=== PATIENT | female | born 1960 | race Caucasian/White ===

== ENCOUNTER 2022-12-08 07:16 | Inpatient (IN) | payer OTHER ==
[2022-12-08] MEDS ORDERED: Lidocaine 1% MPF 2 ML VIAL ONE (10:11)
[2022-12-08 10:39] LABS: SARS-CoV-2 NAA Rapid Test Not Detected (NotDetected)
[2022-12-08 10:58] LABS: #Eosinphils 0.1 thou/uL (0.0-0.7); #Lymphocytes 2.4 thou/uL (1.20-3.40); #Monocytes 0.5 thou/uL (0.11-0.59); #Neutrophils 5.7 thou/uL (1.40-6.50); %Basophils 0.2 % (0.0-1.0); %Lymphocytes 27.1 % (21.0-51.0); %Neutrophils 65.7 % (42.0-75.0); Hemoglobin 13.2 g/dL (12.0-16.0); Mean Corpuscular HGB CONC 32.8 g/dL (32.0-36.0); Mean Corpuscular Volume 85.3 fl (78.0-98.0); Mean Platelet Volume 8.9 fL (7.4-10.4); Platelet Count 277 10x3/uL (130-400); RBC Distribution Width 12.7 % (11.5-14.5); Red Blood Cell (RBC) Count 4.72 mill/uL (4.20-5.40); White Blood Cell (WBC) Count 8.7 10x3/uL (4.8-10.8)
[2022-12-08 11:02] LABS: Anion Gap 15 mmol/L (10-20); BUN (Urea Nitrogen) 19 mg/dL (9.8-20.1); Calc. Creatinine Clearance 133 mL/min (70-130); Calcium 8.8 mg/dL (7.8-10.44); Carbon Dioxide 23 mmol/L (23-31); Chloride 105 mmol/L (98-107); Estimated GFR 85; Glucose 114 mg/dL (80-115); Potassium 5.2 mmol/L (3.5-5.1); Sodium 138 mmol/L (136-145)
[2022-12-08] MEDS ORDERED: HYDROmorphone 0.5 MG/0.5 ML SYRINGE ONE ×5 (11:58→14:14)
[2022-12-08] MEDS ORDERED: fentaNYL PF 100 MCG/2 ML SYRINGE ONE ×3 (11:58→12:00)
[2022-12-08] MEDS ORDERED: Lidocaine 1% PF 5 ML VIAL ONE (12:13)
[2022-12-08] MEDS ORDERED: Ondansetron PF 4 MG/2 ML Vial ONE ×2 (12:13→18:17)
[2022-12-08] MEDS ORDERED: PROPOFOL 200 MG/20 ML VIAL ONE (12:13)
[2022-12-08] MEDS ORDERED: Rocuronium Bromide 10 MG/ML (10ML VIAL) ONE (12:13)
[2022-12-08] MEDS ORDERED: Dexamethasone 20 MG/5 ML VIAL ONE (12:13)
[2022-12-08] MEDS ORDERED: Glycopyrrolate 0.2 MG/ML 5 ML SYRINGE ONE (12:13)
[2022-12-08] MEDS ORDERED: NEOSTIGMINE 3 MG/3 ML SYR 3 MG/3 ML SYRINGE ONE (12:13)
[2022-12-08] MEDS ORDERED: Sodium Chloride 0.9% 100 ML ONE (12:16)
[2022-12-08] MEDS ORDERED: CEFAZOLIN 2 GM VIAL ONE (12:16)
[2022-12-08] MEDS ORDERED: Mag-Al 1200 mg/1200 mg/30 ML UDCUP PO PRN (13:15)
[2022-12-08] MEDS ORDERED: Acetaminophen 325 MG TAB PO PRN (13:15)
[2022-12-08] MEDS ORDERED: Acetaminophen/Codeine 30-300mg Tablet PO PRN ×2 (13:15)
[2022-12-08] MEDS ORDERED: Milk Of Magnesia 30 ML UDCUP PO PRN (13:15)
[2022-12-08] MEDS ORDERED: Dextrose 5% in Water 1,000 ML IV PRN (13:17)
[2022-12-08] MEDS ORDERED: HumaLOG 300 UNITS/3 ML VIAL SC PRN (13:17)
[2022-12-08] MEDS ORDERED: Dextrose 50% Abboject 50 ML SYRINGE SLOW IVP PRN (13:17)
[2022-12-08] MEDS ORDERED: Promethazine HCl 25 MG/ML VIAL IM PRN (13:32)
[2022-12-08] MEDS ORDERED: HYDROmorphone 2 MG/ML VIAL SLOW IVP PRN (13:32)
[2022-12-08] MEDS ORDERED: Ondansetron HCl/PF 4 MG/2 ML Vial IVP PRN (13:32)
[2022-12-08] MEDS ORDERED: Fentanyl 250 MCG/5 ML VIAL ONE (14:32)
[2022-12-08] MEDS ORDERED: Morphine 2 MG/ML VIAL ONE (18:14)
[2022-12-08] MEDS: Morphine 2 MG/ML VIAL SLOW IVP PRN ×2 (18:15→22:51)
[2022-12-08] MEDS: Sodium Chloride 0.9% 1,000 ML IV SCH (18:19)
[2022-12-08] MEDS: Ondansetron PF 4 MG/2 ML Vial IVP PRN (18:19)
[2022-12-08] MEDS: CEFAZOLIN 2 GM in Sodium Chloride 0.9% 100 ML IVPB SCH (19:59)
[2022-12-08 21:37] VITALS: BMI 44.2
[2022-12-08] MEDS: Promethazine 25 MG TAB PO PRN (21:51)
[2022-12-08] MEDS: diphenhydrAMINE 25 MG CAP PO PRN (22:51)
[2022-12-09] MEDS: Morphine 2 MG/ML VIAL SLOW IVP PRN ×3 (03:57→21:44)
[2022-12-09] MEDS: Sodium Chloride 0.9% 1,000 ML IV SCH ×2 (03:57→12:33)
[2022-12-09] MEDS: Ondansetron PF 4 MG/2 ML Vial IVP PRN (03:57)
[2022-12-09] MEDS: CEFAZOLIN 2 GM in Sodium Chloride 0.9% 100 ML IVPB SCH ×3 (03:58→21:40)
[2022-12-09] MEDS ORDERED: Dexamethasone 3 MG in Sodium Chloride 0.9% 50 ML IVPB SCH (05:45)
[2022-12-09] MEDS ORDERED: Dexamethasone 10 MG/ML VIAL SLOW IVP SCH (05:45)
[2022-12-09] MEDS ORDERED: oxyCODONE/Acetaminophen 5 mg/325 mg Tablet PO PRN (06:40)
[2022-12-09] MEDS: Cyclobenzaprine 10 MG TAB PO PRN ×2 (08:03→21:43)
[2022-12-09] MEDS: Promethazine 25 MG TAB PO PRN (08:03)
[2022-12-09 08:51] LABS: #Lymphocytes 1.2 thou/uL (1.20-3.40); #Monocytes 0.3 thou/uL (0.11-0.59); #Neutrophils 10.6 thou/uL (1.40-6.50); %Basophils 0.1 % (0.0-1.0); %Lymphocytes 9.6 % (21.0-51.0); %Monocytes 2.6 % (0.0-10.0); %Neutrophils 87.7 % (42.0-75.0); Hemoglobin 12.8 g/dL (12.0-16.0); Mean Corpuscular Hemoglobin 27.8 pg (27.0-31.0); Mean Corpuscular Volume 86.9 fl (78.0-98.0); Mean Platelet Volume 8.8 fL (7.4-10.4); Platelet Count 286 10x3/uL (130-400); RBC Distribution Width 12.6 % (11.5-14.5); Red Blood Cell (RBC) Count 4.62 mill/uL (4.20-5.40); White Blood Cell (WBC) Count 12.1 10x3/uL (4.8-10.8)
[2022-12-09] MEDS ORDERED: FLU VACC QS2022-23(6MOS UP)/PF 60 MCG/0.5 ML SYRINGE IM ONE (09:00)
[2022-12-09 09:33] LABS: Anion Gap 12 mmol/L (10-20); BUN (Urea Nitrogen) 14 mg/dL (9.8-20.1); Calc. Creatinine Clearance 133 mL/min (70-130); Calcium 8.7 mg/dL (7.8-10.44); Carbon Dioxide 26 mmol/L (23-31); Chloride 102 mmol/L (98-107); Estimated GFR 83; Glucose 169 mg/dL (80-115); Potassium 4.3 mmol/L (3.5-5.1); Sodium 136 mmol/L (136-145)
[2022-12-09] MEDS: diphenhydrAMINE 25 MG CAP PO PRN ×2 (09:34→16:49)
[2022-12-09] MEDS ORDERED: oxyCODONE 5 MG TAB PO PRN (14:42)
[2022-12-09] MEDS: Acetaminophen 500 MG TAB PO SCH ×2 (16:49→21:43)
[2022-12-10] MEDS: diphenhydrAMINE 25 MG CAP PO PRN ×2 (00:07→09:44)
[2022-12-10] MEDS: CEFAZOLIN 2 GM in Sodium Chloride 0.9% 100 ML IVPB SCH (04:17)
[2022-12-10] MEDS: Sodium Chloride 0.9% 1,000 ML IV SCH (04:19)
[2022-12-10] MEDS: Morphine 2 MG/ML VIAL SLOW IVP PRN (05:42)
[2022-12-10] MEDS ORDERED: Dexamethasone 4 mg/ml Vial SLOW IVP SCH (06:02)
[2022-12-10 08:39] VITALS: BP 131/76; TEMP 98.1
[2022-12-10 08:41] LABS: #Lymphocytes 1.5 thou/uL (1.20-3.40); #Monocytes 0.4 thou/uL (0.11-0.59); #Neutrophils 8.5 thou/uL (1.40-6.50); %Eosinophils 0.2 % (0.0-10.0); %Lymphocytes 14.2 % (21.0-51.0); %Monocytes 3.8 % (0.0-10.0); %Neutrophils 81.9 % (42.0-75.0); Hemoglobin 11.7 g/dL (12.0-16.0); Mean Corpuscular HGB CONC 30.9 g/dL (32.0-36.0); Mean Corpuscular Hemoglobin 27.3 pg (27.0-31.0); Mean Corpuscular Volume 88.3 fl (78.0-98.0); Mean Platelet Volume 8.6 fL (7.4-10.4); Platelet Count 268 10x3/uL (130-400); RBC Distribution Width 12.6 % (11.5-14.5); Red Blood Cell (RBC) Count 4.29 mill/uL (4.20-5.40); White Blood Cell (WBC) Count 10.4 10x3/uL (4.8-10.8)
[2022-12-10 08:56] LABS: Anion Gap 10 mmol/L (10-20); BUN (Urea Nitrogen) 19 mg/dL (9.8-20.1); Calc. Creatinine Clearance 136 mL/min (70-130); Calcium 8.3 mg/dL (7.8-10.44); Carbon Dioxide 27 mmol/L (23-31); Chloride 103 mmol/L (98-107); Estimated GFR 86; Glucose 151 mg/dL (80-115); Potassium 4.3 mmol/L (3.5-5.1); Sodium 136 mmol/L (136-145)
[2022-12-10] MEDS: Acetaminophen 500 MG TAB PO SCH (09:03)
== END 2022-12-10 10:05 | disposition home or self-care (01) | DRG 472 ==
LOC: SURG A 07:16 → EDSTATUS 11:12 → T4-B 21:28
PROVIDERS: ADMIT Neurological Surgery; ATTEND Neurological Surgery
PROC: 0RG20A0 Fusion of 2 or more Cervical Vertebral Joints with Interbody Fusion Device, Anterior Approach, Anterior Column, Open Approach (ICD-10-PCS; principal; 2022-12-08)
PROC: 0RB30ZZ Excision of Cervical Vertebral Disc, Open Approach (ICD-10-PCS; 2022-12-08)
PROC: 00NW0ZZ Release Cervical Spinal Cord, Open Approach (ICD-10-PCS; 2022-12-08)
PROC: 0PP304Z Removal of Internal Fixation Device from Cervical Vertebra, Open Approach (ICD-10-PCS; 2022-12-08)
DX: M50.11 Cervical disc disorder with radiculopathy, high cervical region (principal); Z68.41 Body mass index [BMI] 40.0-44.9, adult; Z20.822 Contact with and (suspected) exposure to COVID-19; E11.9 Type 2 diabetes mellitus without complications; G89.29 Other chronic pain; I10 Essential (primary) hypertension; J45.909 Unspecified asthma, uncomplicated; R13.10 Dysphagia, unspecified; M48.02 Spinal stenosis, cervical region; E66.01 Morbid (severe) obesity due to excess calories; Z91.040 Latex allergy status; Z88.6 Allergy status to analgesic agent; Z88.8 Allergy status to other drugs, medicaments and biological substances; Z79.82 Long term (current) use of aspirin; Z79.899 Other long term (current) drug therapy
CPT/HCPCS: 36415; 36416; 80048; 85025; 90471; 90686; 93005; 93010; C1713; G0008; J1100; J1170; J2272; J2405; J2704; J3010; J3490; J7050; Q0169; U0002